=== PATIENT | male | born 1955 | race Caucasian/White ===

== ENCOUNTER 2017-06-05 17:56 | Inpatient (IN) | payer BC ==
[~2017-06-05] VITALS: Ht 170.2 cm; Wt 74.4 kg
--- NOTE | 2017-06-05 18:00 | NUR ---
PATIENT BIB RA FROM URGENT CARE C/O SEVERE ABDOMINAL PAIN, 05/14. PATIENT IS A/OX 4. BREATHING EVEN AND UNLABORED ON ROOM AIR. NO SOB. VITALS STABLE. SAFETY AND COMFORT MEASURES IN PLACE. AWAITING MD ORDERS.
[2017-06-05] MEDS ORDERED: MORPHINE SULFATE INJ 4 MG/ML DISP.SYRIN ONE ×2 (18:15→18:48)
[2017-06-05] MEDS ORDERED: METOCLOPRAMIDE HCL 10 MG/2 ML VIAL ONE (18:15)
[2017-06-05] MEDS ORDERED: ONDANSETRON HCL/PF 4 MG/2 ML VIAL ONE (18:15)
--- NOTE | 2017-06-05 18:24 | NUR ---
PATIENT MEDICATED PER MD ORDERS.
[2017-06-05] MEDS ORDERED: ONDANSETRON HCL/PF 4 MG/2 ML VIAL IVP ONE (18:30)
[2017-06-05] MEDS ORDERED: IV NS 0.9% 1,000 ML BAG IV ONE (18:30)
[2017-06-05] MEDS ORDERED: METOCLOPRAMIDE HCL 10 MG/2 ML VIAL IV ONE (18:30)
[2017-06-05] MEDS ORDERED: MORPHINE SULFATE INJ 2 MG/ML DISP.SYRIN IV ONE ×2 (18:30→19:00)
[2017-06-05 18:41] LABS: BASOPHILS % (AUTO) 0.4 % (0.0-2.0); EOSINOPHILS # (AUTO) 0.1 /CMM (0.0-0.7); EOSINOPHILS % (AUTO) 1.1 % (0.0-6.0); HEMATOCRIT 45 % (39-51); HEMOGLOBIN 15.6 g/dL (13.5-17.5); LYMPHOCYTES # (AUTO) 1.2 /CMM (0.8-4.8); MEAN CORPUSCULAR HEMOGLOBIN 30 PG (26.0-33.0); MEAN CORPUSCULAR HGB CONC 35 g/dl (31.0-36.0); MEAN CORPUSCULAR VOLUME 87 fL (80-96); MONOCYTES # (AUTO) 0.7 /CMM (0.1-1.30); MONOCYTES % (AUTO) 6.8 % (2.0-12.0); NEUTROPHILS # (AUTO) 8.3 /CMM (1.8-8.9); NEUTROPHILS % (AUTO) 79.7 % (43.0-81.0); PLATELET COUNT (AUTO) 208 /CMM (150-450); RDW COEFFICIENT OF VARIATION 12.8 (11.5-15.0); RED BLOOD CELL COUNT(AUTO) 5.15 MIL/uL (4.5-6.0); WHITE BLOOD COUNT (AUTO) 10.3 K/uL (4.3-11.0)
--- NOTE | 2017-06-05 18:49 | NUR ---
PATIENT STILL C/O SEVERE ABDOMINAL PAIN. MD MADE AWARE, ORDERED ANOTHER DOSE OF MORPHINE 4 MG. MED ADMINISTERED.
[2017-06-05 18:58] LABS: CALCIUM, SERUM 8.9 mg/dL (8.5-10.1); CREATININE 0.8 mg/dL (0.6-1.3); POTASSIUM 3.7 mmol/L (3.5-5.1)
[2017-06-05 19:04] LABS: ALBUMIN 3.9 g/dL (3.4-5.0); BILIRUBIN,DIRECT 0.2 mg/dL (0.0-0.2); BILIRUBIN,TOTAL 1.1 mg/dL (0.2-1.0)
--- NOTE | 2017-06-05 19:27 | NUR ---
REPORT GIVEN TO PLANT NURSERY WORKER, ED FOR BLANCA.
--- NOTE | 2017-06-05 19:34 | NUR ---
CT RESULT RECEIVED, JULIEN MADE AWARE.
--- NOTE | 2017-06-05 19:44 | NUR ---
CALLED DR MCMAHON FOR SURGICAL CONSULT, TRANSFERRED CALL TO DR POSEY
--- NOTE | 2017-06-05 19:47 | NUR ---
PT STILL C/O ABDOMINAL PAIN 04/13 ER MD MADE AWARE.
[2017-06-05] MEDS ORDERED: HYDROMORPHONE INJ 2 MG/ML DISP.SYRIN ONE (19:59)
[2017-06-05] MEDS ORDERED: HYDROMORPHONE 1 MG/1 ML DISP.SYRIN IV ONE (20:00)
--- NOTE | 2017-06-05 20:14 | NUR ---
ASSIGNED M/S [facility] [id number]
--- NOTE | 2017-06-05 20:25 | NUR ---
REPORT CALLED TO M/S NISHANT SIFUENTES.
--- NOTE | 2017-06-05 20:52 | NUR ---
MS/RN RECEIVE PATIENT FROM E.. VIA [facility]. PATIENT IS AWAKE, SLEEPY, ORIENTED, WITH C/O ABDOMINAL PAIN 6/10, NO SIGNS OF DISTRESS NOTED. MADE COMFORTABLE, IN BED. ADMISSION DONE, PATIENT NOT ANSWERING TO SOME OF THE QUESTIONS, HENCE UNABLE TO OBTAIN FULL ADMISSION HISTORY. REFUSED SKIN CHECK. WILL MONITOR.
[2017-06-05] MEDS ORDERED: IV D5/0.45 NACL 1,000 ML IV PRN (22:28)
[2017-06-05] MEDS ORDERED: MORPHINE SULFATE INJ 2 MG/ML DISP.SYRIN IV PRN (22:30)
[2017-06-05] MEDS ORDERED: ONDANSETRON HCL/PF 4 MG/2 ML VIAL IVP PRN (22:30)
[2017-06-05] MEDS ORDERED: ACETAMINOPHEN 325 MG TABLET PO PRN (22:30)
[2017-06-05] MEDS ORDERED: MORPHINE SULFATE INJ 2 MG/ML DISP.SYRIN ONE (23:45)
[2017-06-06] MEDS ORDERED: ONDANSETRON HCL/PF 4 MG/2 ML VIAL ONE (02:12)
--- NOTE | 2017-06-06 06:08 | NUR ---
MS/RN ON ADMISSION LAST NIGHT, PATIENT REFUSED TO SIGN THE SURGERY CONSENT ORDERED. PER PATIENT HE WILL TALK TO THE DOCTOR FIRST BEFORE SIGNING THE CONSENT.
--- NOTE | 2017-06-06 06:25 | NUR ---
MS/STAMPING BENCH DIE MAKER RN CALLED. INFORMED HER THAT THE PATIENT DOES NOT WANT TO SIGN THE SURGERY CONSENT AND THAT THE PATIENT WANTS TO TALK TO MD FIRST. AND INFORMED ALSO SURGERY RN THAT THE PATIENT WANTS HIS OWN DOCTOR TO DO THE SURGERY. PER SURGERY RN, SHE WILL CALL DR. MCMAHON AND ASK HIM TO COME AND TALK TO THE PATIENT.
[2017-06-06 06:46] LABS: HEMATOCRIT 44 % (39-51); HEMOGLOBIN 14.8 g/dL (13.5-17.5); LYMPHOCYTES # (AUTO) 0.5 /CMM (0.8-4.8); LYMPHOCYTES % (AUTO) 3.6 % (20.0-44.0); MEAN CORPUSCULAR HEMOGLOBIN 30 PG (26.0-33.0); MEAN CORPUSCULAR HGB CONC 33 g/dl (31.0-36.0); MEAN CORPUSCULAR VOLUME 89 fL (80-96); MONOCYTES # (AUTO) 0.5 /CMM (0.1-1.30); MONOCYTES % (AUTO) 3.7 % (2.0-12.0); NEUTROPHILS # (AUTO) 12.2 /CMM (1.8-8.9); NEUTROPHILS % (AUTO) 92.7 % (43.0-81.0); PLATELET COUNT (AUTO) 211 /CMM (150-450); RDW COEFFICIENT OF VARIATION 13.7 (11.5-15.0); RED BLOOD CELL COUNT(AUTO) 4.99 MIL/uL (4.5-6.0); WHITE BLOOD COUNT (AUTO) 13.1 K/uL (4.3-11.0)
--- NOTE | 2017-06-06 06:50 | NUR ---
MS/RN PATIENT SLEEPING, APPEAR COMFORTABLE, BREATHING EVEN AND UNLABORED, ALL NEEDS ATTENDED AT THIS TIME. WILL CONTINUE TO MONITOR.
[2017-06-06 07:06] LABS: THYROID STIMULATING HORMONE 0.829 uIU/mL (0.358-3.74)
[2017-06-06 07:08] LABS: ALBUMIN 3.6 g/dL (3.4-5.0); BILIRUBIN,TOTAL 1.1 mg/dL (0.2-1.0); CALCIUM, SERUM 8.5 mg/dL (8.5-10.1); MAGNESIUM 1.8 mg/dL (1.8-2.4); PHOSPHORUS 2.9 mg/dL (2.5-4.9); POTASSIUM 4.1 mmol/L (3.5-5.1)
--- NOTE | 2017-06-06 07:20 | NUR ---
RN NOTES PT IS IN BED, RESTING COMFORTABLY. IV ON RFA, INTACT AND RUNNING D51/2 NS AT 75 ML/HR. PT ON ROOM AIR, NO SOB OR DISTRESS NOTED. SAFETY MEASURES ARE IN PLACE, CALL LIGHT IS IN REACH. WILL CONTINUE TO MONITOR.
--- NOTE | 2017-06-06 07:42 | NUR ---
RN NOTES SPOKE WITH PATIENT ABOUT NEED FOR SURGERY TODAY. PT STATES THAT HE WANTS HIS OWN DOCTOR TO DO THE SURGERY AND WOULD LIKE TO BE DISCHARGED. OR WAS NOTIFIED.
[2017-06-06 08:00] VITALS: BP 103/63
--- NOTE | 2017-06-06 11:55 | NUR ---
RN NOTES PT WAS DISCHARGED HOME ACCOMPANIED BY HIS FRIEND. PT UNDERSTANDS HE STILL NEEDS SURGERY FOR HIS HERNIA AND STATES HE WILL FOLLOW UP WITH HIS OWN SURGEON FOR THE REST OF HIS TREATMENT. PT LEAVING AGAINST MEDICAL ADVICE OF DR. MCMAHON. DR MCMAHON AND DR ALLEN BOTH SPOKE TO PT AND HE STILL INSISTS ON HAVING HIS OWN DR PERFORM THE SURGERY. PTS IV AND ID BAND WERE REMOVED AND DC PAPERS WERE SIGNED.
== END 2017-06-06 11:45 | disposition home or self-care (01) | DRG 395 ==
LOC: ER 17:56 → MED 20:54
PROVIDERS: ADMIT Nurse Practitioner Acute Care; ATTEND Nurse Practitioner Acute Care
DX: K42.0 Umbilical hernia with obstruction, without gangrene (principal); N20.0 Calculus of kidney; E78.5 Hyperlipidemia, unspecified; E78.00 Pure hypercholesterolemia, unspecified; M10.9 Gout, unspecified; M77.9 Enthesopathy, unspecified; Z87.442 Personal history of urinary calculi
CPT/HCPCS: 36415; 71010-TC; 71250-TC; 80048-TC; 80053-TC; 80061-TC; 80076-TC; 83690-TC; 83735-TC; 84100-TC; 84443-TC; 85025-TC; 87081-TC; A4606; J1170; J2270; J2405; J2765; J3490; J7030; Z7610

== ENCOUNTER 2021-09-04 20:39 | Inpatient (IN) | payer MEDICARE ==
[~2021-09-04] VITALS: Ht 175.3 cm; Wt 87.5 kg
--- NOTE | 2021-09-04 20:48 | NUR ---
PT AAOX4. BIBRA 77 FROM HOME C/O EPIGASTRIC PAIN SINCE NOON NON RADIATING. +N/V PLACED IN BED 4 ON MONITOR AND PULSE OX. VSS. AWAITING ER MD FOR EVAL AND ORDERS.
[2021-09-04] MEDS ORDERED: ONDANSETRON HCL/PF 4 MG/2 ML VIAL ONE (20:58)
[2021-09-04] MEDS ORDERED: ONDANSETRON HCL/PF 4 MG/2 ML VIAL IV ONE (21:00)
--- NOTE | 2021-09-04 21:04 | NUR ---
BLOOD COLLECTED AND SENT TO LAB
--- NOTE | 2021-09-04 21:05 | NUR ---
US AT BEDSIDE
[2021-09-04 21:06] LABS: BASOPHILS % (AUTO) 0.3 % (0.0-2.0); EOSINOPHILS % (AUTO) 0.2 % (0.0-6.0); HEMATOCRIT 48 % (39-51); HEMOGLOBIN 16.5 g/dL (13.5-17.5); LYMPHOCYTES # (AUTO) 1.2 K/uL (0.8-4.8); LYMPHOCYTES % (AUTO) 8.4 % (20.0-44.0); MEAN CORPUSCULAR HGB CONC 34 g/dl (31.0-36.0); MEAN CORPUSCULAR VOLUME 89 fL (80-96); MONOCYTES # (AUTO) 0.6 K/uL (0.1-1.30); MONOCYTES % (AUTO) 3.9 % (2.0-12.0); NEUTROPHILS # (AUTO) 12.3 K/uL (1.8-8.9); NEUTROPHILS % (AUTO) 87.2 % (43.0-81.0); PLATELET COUNT (AUTO) 233 K/uL (150-450); RED BLOOD CELL COUNT(AUTO) 5.36 MIL/uL (4.5-6.0); WHITE BLOOD COUNT (AUTO) 14.1 K/uL (4.3-11.0)
[2021-09-04] MEDS ORDERED: MORPHINE SULFATE INJ 4 MG/ML DISP.SYRIN ONE (21:20)
--- NOTE | 2021-09-04 21:21 | NUR ---
UNABLE TO TOLERATE US, REQUESTING PAIN MEDS
[2021-09-04 21:25] LABS: ALBUMIN 4.4 g/dL (3.4-5.0); BILIRUBIN,DIRECT 0.3 mg/dL (0.0-0.2); BILIRUBIN,TOTAL 1.4 mg/dL (0.2-1.0); CALCIUM, SERUM 10.2 mg/dL (8.5-10.1); POTASSIUM 5.3 mmol/L (3.5-5.1); TOTAL PROTEIN, SERUM 8.5 g/dL (6.4-8.2)
--- NOTE | 2021-09-04 21:25 | NUR ---
PT C/O PAIN DURING US. VERBAL ORDER RECIEVED FOR 4MG IVP MORPHINE BY ER LAW.
[2021-09-04] MEDS ORDERED: MORPHINE SULFATE INJ 2 MG/ML DISP.SYRIN IV ONE (21:30)
--- NOTE | 2021-09-04 22:33 | NUR ---
PT RETURNED TO CT VIA [facility]
--- NOTE | 2021-09-04 22:33 | NUR ---
PATIENT BACK FROM CT
[2021-09-04] MEDS ORDERED: IV NS 0.9% 1,000 ML BAG IV ONE (23:00)
[2021-09-04 23:21] LABS: BILIRUBIN,URINE SMALL (NEGATIVE); COLOR,URINE YELLOW (YELLOW); LEUKOCYTE ESTERASE ,URINE Negative (NEGATIVE); NITRITE, URINE Negative (NEGATIVE); PH,URINE 8.5 (5.0-8.0); PROTEIN,URINE 100 mg/dl (NEGATIVE); UGLUCOSE Negative (NEGATIVE)
[2021-09-04 23:25] LABS: BACTERIA,URINE Rare /HPF (None Seen); RBC,URINE NONE SEEN /HPF (0-2); SQUAMOUS EPITHELIAL CELL,UR Few /HPF (None Seen); WBC,URINE NONE SEEN /HPF (0-3)
[2021-09-05] MEDS ORDERED: LIDOCAINE VISCOUS 2% UD 15 ML UDC ONE (00:12)
[2021-09-05] MEDS ORDERED: ACETAMINOPHEN 325 MG TABLET PO PRN (00:30)
[2021-09-05] MEDS ORDERED: hydrALAZINE HCL IV 20 MG VIAL IV PRN (00:30)
[2021-09-05] MEDS ORDERED: MORPHINE SULFATE INJ 2 MG/ML DISP.SYRIN IV PRN (00:30)
[2021-09-05] MEDS ORDERED: ONDANSETRON HCL/PF 4 MG/2 ML VIAL IVP PRN (00:30)
[2021-09-05 00:48] LABS: ALBUMIN 4.1 g/dL (3.4-5.0); BILIRUBIN,TOTAL 1.4 mg/dL (0.2-1.0); CALCIUM, SERUM 9.5 mg/dL (8.5-10.1); CREATININE 0.9 mg/dL (0.6-1.3); POTASSIUM 3.9 mmol/L (3.5-5.1); TOTAL PROTEIN, SERUM 7.9 g/dL (6.4-8.2)
--- NOTE | 2021-09-05 00:55 | NUR ---
LACTIC ACID 3.0
--- NOTE | 2021-09-05 01:29 | NUR ---
NG TUBE PLACED IN RT NARES AT 60 WITH POSITIVE OUTPUT. ATTACHED TO INTERMITTENT WALL SUCTION
--- NOTE | 2021-09-05 02:36 | NUR ---
ROOM [id number]
[2021-09-05] MEDS ORDERED: CEFEPIME 1 GM in IV D5W 50 ML IV SCH (03:00)
--- NOTE | 2021-09-05 03:16 | NUR ---
REPORT GIVEN TO MAURICE ON THIRD FLOOR
--- NOTE | 2021-09-05 03:25 | NUR ---
PT WAS TRANSFERRED TO 327 IN STABLE CONDITION.
--- NOTE | 2021-09-05 03:40 | NUR ---
MS METAL BALER NOTE PATIENT RECEIVED FROM ER BY PATIENCE. PATIENT PRESENTS IN A HUMOROUS AND PLEASANT MOOD. A/OX4. NO S/S OF DISTRESS; BREATHING EVEN AND UNLABORED. NGT IN RIGHT NARES. IV LAC #20G WITH NS 75ML/HR ORDERED. ALL BELONGINGS ACCOUNTED FOR AND SHEET PLACED IN CHART. PATIENT WAS ORIENTED TO THE UNIT AND EDUCATED GANG MINER BELCHER USE FOR TV AND ALL NEEDS. SAFETY PRECAUTIONS IN PLACE: BED AT LOWEST POSITION, CALL BELCHER WITHIN REACH. WILL CONTINUE TO FOLLOW PATIENT THROUGHOUT REST OF SHIFT.
[2021-09-05 04:35] VITALS: BP 148/70
[2021-09-05] MEDS: IV NS 0.9% 1,000 ML IV PRN (05:18)
[2021-09-05] MEDS: ENOXAPARIN SODIUM 40 MG/0.4 ML DISP.SYRIN SQ SCH ×2 (05:19→21:18)
--- NOTE | 2021-09-05 05:22 | NUR ---
NGT CONNECTED TO LOW INTERMITTENT SUCTION.
[2021-09-05] MEDS ORDERED: CEFEPIME 1 GM VIAL ONE (05:51)
[2021-09-05 06:55] VITALS: BP 148/70
--- NOTE | 2021-09-05 07:25 | NUR ---
MS RN CLOSING NOTE PATIENT AWAKE IN BED. A/OX4. NO S/S OF DISTRESS. BREATHING SYMMETRICAL. CAP REFILL <3 SECS. LAC #20G. SAFETY MEASURES IN PLACE: BED AT LOWEST POSITION, RAILS UP X2, CALL BELCHER WITHIN REACH. WILL ENDORSE TO THE NEXT SHIFT FOR BLANCA.
--- NOTE | 2021-09-05 07:30 | NUR ---
MS RN OPENING NOTES RECEIVED PATIENT AWAKE ON BED AND A/O X4. ON ROOM AIR TOLERATING WELL. NO SOB NOTED. NOT IN DISTRESS. WITH NGT ON LOW INTERMITTENT SUCTION. WITH NO COMPLAINTS OF PAIN AT THIS TIME. WITH IV ACCESS AT LEFT AC G20 WITH NS AT 75ML/HR INFUSING WELL. SAFETY MEASURES IN PLACE. CALL LIGHT WITHIN REACH. BED ON LOWEST AND LOCKED POSITION, SIDE RAILS UP X2. WILL CONTINUE TO MONITOR.
[2021-09-05] MEDS ORDERED: PNEUMOCOCCAL 23-VAL P-SAC VAC 0.5 ML VIAL SQ ONE (08:00)
[2021-09-05] MEDS ORDERED: INFLUENZA VACCINE 2021-22 0.5 ML DISP.SYRIN IM ONE (08:00)
[2021-09-05] MEDS ORDERED: ALLO300T2 PO (08:25)
[2021-09-05] MEDS ORDERED: ATOR10TA PO (08:25)
[2021-09-05] MEDS: CEFEPIME 2 GM in IV D5W 100 ML IV SCH ×2 (08:29→21:18)
[2021-09-05] MEDS ORDERED: CEFAZOLIN 2 GM in IV D5W 100 ML IV SCH (09:00)
[2021-09-05] MEDS ORDERED: CLONIDINE HCL 0.2MG/24H PTWK 1 EA PATCH TD SCH (10:30)
[2021-09-05] MEDS ORDERED: DIATR MEGLU/DIATRIZOATE SODIUM 120 ML BOTTLE (GASTROGRAPHIN) ONE (10:42)
[2021-09-05] MEDS ORDERED: BARIUM SULFATE 98% 135 ML SUSP.RECON PO ONE (10:42)
--- NOTE | 2021-09-05 17:30 | NUR ---
MS RN CLOSING NOTES PATIENT RESTING ON BED AND A/O X4. ON ROOM AIR TOLERATING WELL. NO SOB NOTED. NOT IN DISTRESS. WITH NGT ON LOW INTERMITTENT SUCTION. WITH NO COMPLAINTS OF PAIN AT THIS TIME. WITH IV ACCESS AT LEFT AC G20 WITH NS AT 75ML/HR INFUSING WELL. SAFETY MEASURES IN PLACE. CALL LIGHT WITHIN REACH. BED ON LOWEST AND LOCKED POSITION, SIDE RAILS UP X2. WILL ENDORSE TO NEXT SHIFT FOR BLANCA.
[2021-09-05 20:00] VITALS: BP 127/68
--- NOTE | 2021-09-06 06:30 | NUR ---
PHYSICAL SCIENCES PROFESSOR NOTES AWAKE & RESPONSIVE. NOT IN ANY DISTRESS. NO SOB NOTED. DENIES ANY PAIN OR DISCOMFORT AT THIS TIME. WITH NGT TO LIS DRAINING BROWNISH OUTPUT SCANTY IN AMOUNT. MONITORED ACCORDINGLY. CALL LIGHT WITHIN REACH. BED IN LOWEST POSITION. SR UP X 2 ON FOR SAFETY. WILL ENDORSE TO NEXT SHIFT.
--- NOTE | 2021-09-06 07:24 | NUR ---
SUPERVISOR TAN ROOM NOTES AWAKE, NON VERBAL. RESPONSIVE TO TACTILE STIMULI. NOT IN ANY DISTRESS. NO SOB NOTED. NO S/SX OF ANY PAIN OR DISCOMFORT AT THIS TIME. WITH IVF & GTF INFUSING WELL. AM CARE DONE. MONITORED ACCORDINGLY. CALL LIGHT WITHIN REACH. BED IN LOWEST POSITION. SR UP X 3 WITH BED ALARM ON FOR SAFETY. WILL ENDORSE TO NEXT SHIFT. Addendum: 09/06/21 at [id number] by ADOLFO GARRETT RN DISREGARD NOTES. USER ERROR.
--- NOTE | 2021-09-06 07:30 | NUR ---
MS RN OPENING NOTES RECEIVED PATIENT ON BED AWAKE AND A/O X4. ON ROOM AIR TOLERATING WELL. NO SOB NOTED. NOT IN DISTRESS. WITH NG-TUBE IN PLACE. AWAITING FOR CXR RESULT TO CONNECT NG-TUBE TO INTERMITTENT SUCTION. WITH NO COMPLAINTS OF PAIN AT THIS TIME. WITH IV ACCESS AT LEFT AC G20 WITH NS AT 75ML/HR INFUSING WELL. SAFETY MEASURES IN PLACE. CALL LIGHT WITHIN REACH. BED ON LOWEST AND LOCKED POSITION, SIDE RAILS UP X2. WILL CONTINUE TO MONITOR.
[2021-09-06 07:51] LABS: BASOPHILS % (AUTO) 0.3 % (0.0-2.0); EOSINOPHILS % (AUTO) 1.2 % (0.0-6.0); HEMATOCRIT 42 % (39-51); HEMOGLOBIN 14.5 g/dL (13.5-17.5); LYMPHOCYTES # (AUTO) 1.1 K/uL (0.8-4.8); LYMPHOCYTES % (AUTO) 12.9 % (20.0-44.0); MEAN CORPUSCULAR HGB CONC 35 g/dl (31.0-36.0); MEAN CORPUSCULAR VOLUME 91 fL (80-96); MONOCYTES % (AUTO) 11.8 % (2.0-12.0); NEUTROPHILS # (AUTO) 6.1 K/uL (1.8-8.9); NEUTROPHILS % (AUTO) 73.8 % (43.0-81.0); PLATELET COUNT (AUTO) 188 K/uL (150-450); RED BLOOD CELL COUNT(AUTO) 4.63 MIL/uL (4.5-6.0); WHITE BLOOD COUNT (AUTO) 8.3 K/uL (4.3-11.0)
[2021-09-06] MEDS: CEFEPIME 2 GM in IV D5W 100 ML IV SCH ×2 (08:09→20:40)
[2021-09-06 09:53] LABS: ALBUMIN 3.3 g/dL (3.4-5.0); BILIRUBIN,TOTAL 1.7 mg/dL (0.2-1.0); CALCIUM, SERUM 8.1 mg/dL (8.5-10.1); CREATININE 0.9 mg/dL (0.6-1.3); MAGNESIUM 2.2 mg/dL (1.8-2.4); PHOSPHORUS 2.5 mg/dL (2.5-4.9); POTASSIUM 3.6 mmol/L (3.5-5.1); TOTAL PROTEIN, SERUM 6.8 g/dL (6.4-8.2)
[2021-09-06] MEDS: IV NS 0.9% 1,000 ML IV PRN ×2 (09:59→22:12)
[2021-09-06] MEDS: METOCLOPRAMIDE HCL 10 MG/2 ML VIAL IV SCH ×2 (12:50→20:42)
--- NOTE | 2021-09-06 13:52 | NUR ---
RN NOTES RELAYED TO DR. MCMAHON THE RESULT OF XR ABDOMEN KUB AND ORDERED TO REMOVE NGT AND TO FOLLOW-UP KUB IN AM - CARRIED OUT.
--- NOTE | 2021-09-06 18:31 | NUR ---
MS RN CLOSING NOTES PATIENT ON BED AWAKE, WATCHING TV AND A/O X4. ON ROOM AIR TOLERATING WELL. NO SOB NOTED. NOT IN DISTRESS. WITH NO COMPLAINTS OF PAIN AT THIS TIME. WITH IV ACCESS AT LEFT AC G20 WITH NS AT 75ML/HR INFUSING WELL. DUE MEDS GIVEN. SAFETY MEASURES IN PLACED. CALL LIGHT WITHIN REACH. BED ON LOWEST AND LOCKED POSITION, SIDE RAILS UP X2. WILL ENDORSE TO NEXT SHIFT FOR BLANCA.
--- NOTE | 2021-09-06 19:10 | NUR ---
RN NOTES: RECEIVED AWAKE ON BED, A/OX4, VERY PLEASANT PERSONALITY, NO SIGN OF PAIN OR ANY DISCOMFORT, IV CANNULA ON SITE LAC G#20 WITH IVF OF NS AT 75 ML/HR ONGOING, PATENT,CONTINENT B/B, SKIN IS INTACT, CONTINUE TO MONITOR PAIN, N/V. PER ENDORSEMENT NGT REMOVED THIS MORNING.ON CLEAR LIQUIDS, FOR X-RAY AND LABS IN THE MORNING.ORIENTED TO UNIT AND STAFF.
[2021-09-06 20:00] VITALS: BP 107/59
[2021-09-06] MEDS: ENOXAPARIN SODIUM 40 MG/0.4 ML DISP.SYRIN SQ SCH (22:08)
--- NOTE | 2021-09-06 22:13 | NUR ---
RN NOTES: IVF CONSUMED, NEW BAG OF NS AT 75 ML/HR STARTED.
[2021-09-07] MEDS: METOCLOPRAMIDE HCL 10 MG/2 ML VIAL IV SCH (05:35)
[2021-09-07 07:07] LABS: CALCIUM, SERUM 8.1 mg/dL (8.5-10.1); CREATININE 0.8 mg/dL (0.6-1.3); MAGNESIUM 2.3 mg/dL (1.8-2.4); POTASSIUM 4.4 mmol/L (3.5-5.1)
[2021-09-07 07:12] LABS: BASOPHILS % (AUTO) 0.4 % (0.0-2.0); EOSINOPHILS % (AUTO) 3.9 % (0.0-6.0); HEMATOCRIT 40 % (39-51); HEMOGLOBIN 13.7 g/dL (13.5-17.5); LYMPHOCYTES # (AUTO) 1.6 K/uL (0.8-4.8); LYMPHOCYTES % (AUTO) 18.8 % (20.0-44.0); MEAN CORPUSCULAR HGB CONC 34 g/dl (31.0-36.0); MEAN CORPUSCULAR VOLUME 91 fL (80-96); MONOCYTES # (AUTO) 1.1 K/uL (0.1-1.30); MONOCYTES % (AUTO) 12.5 % (2.0-12.0); NEUTROPHILS # (AUTO) 5.7 K/uL (1.8-8.9); NEUTROPHILS % (AUTO) 64.4 % (43.0-81.0); PLATELET COUNT (AUTO) 165 K/uL (150-450); RED BLOOD CELL COUNT(AUTO) 4.37 MIL/uL (4.5-6.0); WHITE BLOOD COUNT (AUTO) 8.8 K/uL (4.3-11.0)
--- NOTE | 2021-09-07 07:39 | NUR ---
MS RN OPENING NOTE RECEIVED PT AWAKE IN BED. A/O X4. PT IS STABLE ON RA WITH NO SOB OR S/S OF RESPIRATORY DISTRESS NOTED. PT HAS NO C/O PAIN OR DISCOMFORT AT THIS TIME. IV ACCESS IN LAC #20 RUNNING NS 75 ML/HR, INTACT AND PATENT. SAFETY PRECAUTIONS MAINTAINED. BED IN LOWEST LOCKED POSITION, HOB ELEVATED, SIDE RAILS UP X2. CALL LIGHT AND TABLE WITHIN REACH. WILL CONTINUE TO MONITOR.
--- NOTE | 2021-09-07 07:52 | NUR ---
RN NOTES: ABLE TO TAKE A NAP AFTER HE WAKE UP ASSISTANT MEN'S LACROSSE COACH, NO PAIN, NO DISCOMFORT, NO NAUSEA,NO VOMITING, FOR X-RAY AND LABS TODAY, ENDORSED FOR CONTINUITY OF CARE.
[2021-09-07 08:00] VITALS: BP 103/60
[2021-09-07] MEDS: CEFEPIME 2 GM in IV D5W 100 ML IV SCH (09:18)
[2021-09-07] MEDS ORDERED: METO-295 PO (10:54)
--- NOTE | 2021-09-07 12:50 | NUR ---
MS LOSS PREVENTION OFFICER NOTE PT DISCHARGED HOME WITH SELF CARE AT THIS TIME. PT IS MEDICALLY STABLE AND CLEARED FOR DISCHARGE BY JO ANN MITCHELL. ALL PT CARE, NEEDS, MEDICATIONS, AND TREATMENT ADMINISTERED ANTICIPATED PER ORDER. DISCHARGE INSTRUCTIONS PROVIDED TO PT. PT VERBALIZED UNDERSTANDING. PT KEPT CLEAN AND DRY. BELONGINGS LIST ACCOUNTED FOR AND SIGNED BY PT. IV ACCESS REMOVED, PRESSURE APPLIED, AND SECURED WITH GAUZE AND TAPE. NO SIGNS OF BLEEDING NOTED. ID BAND REMOVED. NISHANT BETANCUR ACCOMPANIED PT TO LOBBY. CHARGE NURSE NOMI AND JO ANN MITCHELL AWARE.
== END 2021-09-07 12:45 | disposition home or self-care (01) | DRG 388 ==
LOC: ER 20:45 → MED 09-05 03:04
PROVIDERS: ADMIT Nurse Practitioner Family; ATTEND Nurse Practitioner Family
DX: K56.600 Partial intestinal obstruction, unspecified as to cause (principal); N17.0 Acute kidney failure with tubular necrosis; E87.2 Acidosis; Z87.442 Personal history of urinary calculi; E78.5 Hyperlipidemia, unspecified; K56.7 Ileus, unspecified; I25.10 Atherosclerotic heart disease of native coronary artery without angina pectoris; E87.5 Hyperkalemia; D72.829 Elevated white blood cell count, unspecified; N20.0 Calculus of kidney; I10 Essential (primary) hypertension; Z20.822 Contact with and (suspected) exposure to COVID-19
CPT/HCPCS: 36415; 71045-TC; 74018; 74250-TC; 76705-TC; 80048-TC; 80053-TC; 80076-TC; 81001; 83605-TC; 83690-TC; 83735-TC; 84100-TC; 85025-TC; 87081-TC; 93307-TC; C9803; G0378; J0690; J0692; J1650; J2270; J2405; J2765; J7030; J7060; Q9963